=== PATIENT | female | born 1955 | race Caucasian/White ===

== ENCOUNTER 2023-09-11 09:20 | Day surgery (SDC) | payer MEDICARE, OTHER ==
[~2023-09-11] VITALS: Ht 162.6 cm; Wt 87.1 kg
[~2023-09-11 09:20] MED LIST: ACET650T61 PO; ALBU8.5H; ALLE180T33 PO; ASPI81CH33 PO; ATROPINE SULFATE 1% OPHTH SOLN 2ML BTL OS SCH; B-122500 PO; CALC-190 PO; CELE1CAP4 PO; CYCL-707 PO; D3 S20002 PO; DORZ10DR10 OU; EZET10TA21 PO; FLON1SPR; FLUO20CA22 PO; GABA-284 PO; HYDR-3713 PO; LOPR1TAB6 PO; LORA1TAB23 PO; LORA2CON5 PO; MONT5TAB7 PO; MULT-180 PO; NETA2.5D2 OU; OFLOXACIN 0.3 % (OCUFLOX) OPTH SOL 5ML OS ONE; OMEP-173 PO; OMEP10CASR PO; OSTETAB2 PO; PHENYLEPHRINE 10% OPHTH SOL 5ML OS PRN; PHENYLEPHRINE 2.5% OPHTH SOL 2ML OS SCH; PROAAER10 INH; REFRSOL OU; ROSU5TAB40 PO; TROPICAMIDE 1% OPHTH SOLN 15ML OS SCH; VITA200016 PO; XALA0.007 OU; prevagen PO
[2023-09-11] MEDS: LIDOCAINE 3.5 % 1ML OPHTH TOPICAL GEL OU ONE (10:27)
[2023-09-11] MEDS ORDERED: MIDAZOLAM INJ 2MG/2ML VIAL As Ordered ONE (11:03)
[2023-09-11] MEDS ORDERED: fentaNYL 100 MCG/2 ML INJECTION As Ordered ONE (11:03)
[2023-09-11] MEDS: POVIDONE-IODINE 5% OPHTH PREP SOL 30ML As Ordered ONE (11:10)
[2023-09-11] MEDS: mitoMYcin 0.2 MG/VIAL KIT FOR OPHTHALMIC USE As Ordered ONE (11:11)
[2023-09-11] MEDS: LIDOCAINE 1% SDV 5ML VIAL As Ordered ONE (11:11)
[2023-09-11 11:19] VITALS: BP 135/86; TEMP 97.2; O2SAT 97
== END 2023-09-11 11:42 | disposition home or self-care (01) ==
LOC: M SDC 09:20
PROVIDERS: ATTEND Ophthalmology
DX: H40.1121 Primary open-angle glaucoma, left eye, mild stage (principal); I10 Essential (primary) hypertension; E78.00 Pure hypercholesterolemia, unspecified; R12 Heartburn; Z88.0 Allergy status to penicillin; Z88.2 Allergy status to sulfonamides; Z88.8 Allergy status to other drugs, medicaments and biological substances; Z79.899 Other long term (current) drug therapy
CPT/HCPCS: 66183; C1783; J2250; J3010; J7315